=== PATIENT | male | born 1950 | race Native Hawaiian/Other Pacific Islander ===

== ENCOUNTER 2021-08-14 19:10 | Emergency (ER) | payer OTHER ==
[~2021-08-14] VITALS: Ht 175.3 cm; Wt 83.0 kg
[2021-08-14 19:45] LABS: PLATELET COUNT 284 K/uL (142-355)
[2021-08-14 19:57] LABS: POTASSIUM 3.9 mmol/L (3.6-5.2)
[2021-08-14 20:55] VITALS: BP 135/81; TEMP 98.7
[2021-08-15] MEDS ORDERED: CLON1TAB18 PO (03:31)
[2021-08-15] MEDS ORDERED: SINEMET PO (03:31)
[2021-08-15] MEDS ORDERED: DIVALPROEX250 MG PO (03:32)
[2021-08-15] MEDS ORDERED: GABA300C2 PO (03:33)
[2021-08-15] MEDS ORDERED: FAMOTIDINE20 MG PO (03:33)
[2021-08-15] MEDS ORDERED: KEPPRA1000 MG PO (03:34)
[2021-08-15] MEDS ORDERED: QUETIAPINE50 MG PO (03:35)
[2021-08-15] MEDS ORDERED: ROSUVASTATIN CA10 MG PO (03:36)
[2021-08-15] MEDS ORDERED: TAMSULOSIN0.4 MG PO (03:37)
[2021-08-15] MEDS ORDERED: XARELTO10 MG PO (03:38)
[2021-08-15] MEDS ORDERED: ESCITALOPRAM10 MG PO (03:39)
[2021-08-15] MEDS ORDERED: MEMANTINE HYDROC5 MG PO (03:40)
[2021-08-15] MEDS ORDERED: ASCO500T18 PO (05:59)
[2021-08-15] MEDS ORDERED: VITAMIN D325 MCG PO (06:01)
== END 2021-08-14 20:55 | disposition still patient (30) ==
LOC: ED 19:21
PROVIDERS: Emergency Medicine
DX: F25.0 Schizoaffective disorder, bipolar type (principal); R45.1 Restlessness and agitation; R91.8 Other nonspecific abnormal finding of lung field; Z11.52 Encounter for screening for COVID-19; Z04.6 Encounter for general psychiatric examination, requested by authority
CPT/HCPCS: 36415; 80053; 81000; 85027; 87635; 93005; 96372; 99283; J3490; U0003

== ENCOUNTER 2021-08-28 22:19 | Emergency (ER) | payer OTHER ==
[~2021-08-28] VITALS: Ht 175.3 cm; Wt 83.0 kg
[~2021-08-28 22:19] MED LIST: APIX1TAB PO; ASCO500T18 PO; ATOR20TA2 PO; CARB25TA29 PO; CLON0.5T36 PO; CLON1TAB18 PO; DIVALPROEX250 MG PO; ESCITALOPRAM10 MG PO; FAMOTIDINE20 MG PO; GABA300C2 PO; KEPPRA1000 MG PO; LEVE500T5 PO; MEMA5TAB PO; MEMANTINE HYDROC5 MG PO; QUET25TA2 PO; QUETIAPINE50 MG PO; ROSUVASTATIN CA10 MG PO; SINEMET PO; TAMS0.4C PO; TAMSULOSIN0.4 MG PO; VITAMIN D325 MCG PO; XARELTO10 MG PO
[2021-08-28 23:30] LABS: PLATELET COUNT 223 K/uL (142-355)
[2021-08-28 23:40] LABS: POTASSIUM 3.9 mmol/L (3.6-5.2)
[2021-08-29 02:25] VITALS: BP 165/102; TEMP 98.2
== END 2021-08-29 02:25 | disposition still patient (30) ==
LOC: ED 22:19
PROVIDERS: Hospitalist
DX: F25.0 Schizoaffective disorder, bipolar type (principal); Z11.52 Encounter for screening for COVID-19; Z04.6 Encounter for general psychiatric examination, requested by authority
CPT/HCPCS: 80053; 80164; 81000; 85027; 87635; 93005; 99283; U0003